=== PATIENT | female | born 1995 | race Two or more races ===

== ENCOUNTER 2019-06-05 21:24 | Emergency (ER) | payer MEDICAID ==
[~2019-06-05] VITALS: Ht 167.6 cm; Wt 59.0 kg
--- NOTE | 2019-06-05 21:24 | NUR ---
Unable to determine if patient is homeless, and or feels safe at home, as she will not answer questions, at this time. Will follow up.
[2019-06-05 21:25] VITALS: BP 118/70
--- NOTE | 2019-06-05 21:25 | NUR ---
ED Nurse Note: PT brought in by ambulance via gurney. per histological illustrator, pt was found in a hallway of an apartment and acting bizzare. Pt is non compiant on providing information about her self. It appears to be disoriented and detached from reality. pt appears dishoveled. Pt is verbally aggresive. VSS.
[2019-06-05] MEDS ORDERED: Haloperidol 5mg/ml Inj IM ONE (21:30)
--- NOTE | 2019-06-05 21:33 | Emergency Room Report ---
History of Present Illness General Chief Complaint: Overdose Source: EMS Present Illness HPI Is a 24-year-old female with psychiatric history. She presents with behavioral disorder. She was sleeping on the stairway of apartment complex. When security asked her to move, she became belligerent. EMS was called. She has belonging on her dad [facility]. She also has a ID band on her from another hospital. The names do not match up. Patient is not cooperative. Allergies: Coded Allergies: UNABLE TO ASSESS (Unverified , 06/05/19) Patient History Past Medical History: see triage record, old chart reviewed, psych hx Past Surgical History: unable to obtain Family History: unable to obtain Social History: other Last Menstrual Period: Unknown Now: No Immunizations: other Reviewed Nursing Documentation: PMH: Agreed; PSxH: Agreed Nursing Documentation-PMH Past Medical History Deferred: Pt Cognitively Impaired Review of Systems All Other Systems: limited - Not cooperative Physical Exam Sp02 EP Interpretation: reviewed, normal General Appearance: alert/responsive, no apparent distress, non-toxic Head: normocephalic, atraumatic Eyes: PERRL, EOMI ENT: oropharynx normal Neck: supple/symm/no masses Respiratory: effort normal, no rhonchi, no wheezing Cardiovascular: no murmur, gallop, rub Gastrointestinal: non-tender, no mass, non-distended, no rebound/guarding, normal bowel sounds Neurologic: oriented x3, sensory intact, motor strength/tone normal Skin: no rash, normal palpation Medical Decision Making Diagnostic Impression: Primary Impression: Drug abuse Additional Impression: Psychosis Qualified Codes: F23 - Brief psychotic disorder ER Course Patient presents with acute psychosis secondary to drug abuse. She is calm after dose of Haldol. She slept through the night. Now awake and at baseline. Denies suicidal thoughts or homicidal thought. No criteria for 5150. Will discharge home. This patient is a chronic risk of self injury due to poor impulse control, limited coping skills, and judgment intermittently impaired by intoxication. I believe that the available clinical evidence to suggest that these characteristics derived primarily from personality disorder and are likely very stable over time. Hospitalization would likely attenuate risk of self-harm only during halfway period, without lasting risk reduction. Serious self-harm , while possible, would likely be inadvertent, and because of impulsivity, and foreseeable. For these reasons, I do not believe hospitalization would provide meaningful reduction in risk of self-harm. Status: improved Disposition: HOME, SELF-CARE Condition: Stable Additional Instructions: Abstain from drugs and alcohol. Follow-up with your doctor in 7 days. David Sears MD Jun 05, 2019 21:33
--- NOTE | 2019-06-05 22:33 | NUR ---
ED Nurse Note: pt denied any drug abuse. Pt continues to refuse info about her self.
[2019-06-05 23:29] VITALS: BP 112/71
--- NOTE | 2019-06-06 00:44 | NUR ---
SISTERS INFO ACCORDING TO PT [phone](FERNANDO)
--- NOTE | 2019-06-06 01:05 | NUR ---
ED Nurse Note: Report given to BOZEAN Krishnamurthy. Pt in bed with eyes closed. sitter by bedside.
--- NOTE | 2019-06-06 02:58 | NUR ---
ED Nurse Note: Pt is more coherent and states she is not homeless or on the street.
[2019-06-06 03:55] VITALS: BP 110/86
--- NOTE | 2019-06-06 03:55 | NUR ---
ED Nurse Note: pt currently sleeping at this time, arousable by light shake and name, vss, resp even and unlabored on RA, no sx distress noted. will cont monitor. safety precautions in place.
--- NOTE | 2019-06-06 06:10 | NUR ---
ED Nurse Note: Pt's sister called - message left.
--- NOTE | 2019-06-06 06:13 | NUR ---
ED Nurse Note: Pt now states she is homeless, after asking several times for an address. BOZENA Damon is aware, and will complete the homeless paperwork.
--- NOTE | 2019-06-06 06:27 | NUR ---
ED Nurse Note: pt cleared to be d/c per ERMD, pt discharge and aftercare instruction provided, pt provided w/ bus token, pt given map and instruction how to get to [facility], pt reports she is going to [facility] to be with her friend and stay with her, pt given sandwich and juice, provided w/ weather appropriate clothing, no prescription was provided. pt left w/ all belongings. pt advised to follow up with pcp for continuity of care. vss. ambulatory w/ steady gait.
[2019-06-06 06:31] VITALS: BP 116/80
== END 2019-06-06 06:35 | disposition home or self-care (01) ==
LOC: EDBD 21:24 → EMR 21:38
DX: F19.10 Other psychoactive substance abuse, uncomplicated (principal); F23 Brief psychotic disorder
CPT/HCPCS: 80307; 96372; 99283; J1630